=== PATIENT | female | born 1990 | race Caucasian/White ===

== ENCOUNTER 2025-05-07 09:07 | Emergency (ER) | payer OTHER ==
[~2025-05-07] VITALS: Ht 160 cm; Wt 60.0 kg
[2025-05-07 09:14] VITALS: TEMP 98.7
[2025-05-07] MEDS: ACETAMINOPHEN 500 MG TABLET PO ONE (10:28)
[2025-05-07] MEDS: IBUPROFEN 400 MG TABLET PO ONE (10:28)
[2025-05-07] MEDS: LIDOCAINE 5% TRANSDERMAL PATCH TD ONE (10:28)
[2025-05-07 11:45] VITALS: BP 111/70; PULSE 63; RESP 17; O2SAT 99
[2025-05-07] MEDS: CYCLOBENZAPRINE HCL 10 MG TABLET PO ONE (12:00)
[2025-05-07] MEDS ORDERED: CYCL-448 PO (12:22)
== END 2025-05-07 12:50 | disposition home or self-care (01) ==
LOC: EMS 09:09
DX: M54.50 Low back pain, unspecified (principal); M54.2 Cervicalgia; Z88.0 Allergy status to penicillin; V89.2XXA Person injured in unspecified motor-vehicle accident, traffic, initial encounter; Y93.89 Activity, other specified; Y92.410 Unspecified street and highway as the place of occurrence of the external cause; Y99.8 Other external cause status
CPT/HCPCS: 99284; Z7502; Z7610